=== PATIENT | male | born 1970 | race Two or more races ===

== ENCOUNTER 2023-07-16 13:38 | Emergency (ER) | payer OTHER ==
[~2023-07-16] VITALS: Ht 172.7 cm; Wt 62.6 kg
[2023-07-16 14:59] LABS: BASOPHILS # (AUTO) 0.1 K/uL (0.0-0.2); BASOPHILS % (AUTO) 1.3 % (0.0-2.0); CALCIUM, SERUM 9.1 mg/dL (8.5-10.1); CREATININE 2.6 mg/dL (0.6-1.3); EOSINOPHILS # (AUTO) 0.2 K/uL (0.0-0.7); EOSINOPHILS % (AUTO) 3.9 % (0.0-6.0); HEMATOCRIT 22 % (39-51); LYMPHOCYTES % (AUTO) 23.2 % (20.0-44.0); MEAN CORPUSCULAR HEMOGLOBIN 27 PG (26.0-33.0); MEAN CORPUSCULAR HGB CONC 32 g/dl (31.0-36.0); MEAN CORPUSCULAR VOLUME 85 fL (80-96); MONOCYTES # (AUTO) 0.5 K/uL (0.1-1.30); MONOCYTES % (AUTO) 11.7 % (2.0-12.0); NEUTROPHILS # (AUTO) 2.6 K/uL (1.8-8.9); NEUTROPHILS % (AUTO) 59.9 % (43.0-81.0); PLATELET COUNT (AUTO) 259 K/uL (150-450); POTASSIUM 3.3 mmol/L (3.5-5.1); RED BLOOD CELL COUNT(AUTO) 2.58 MIL/uL (4.5-6.0); RED CELL DISTRIBUTION WIDTH 17.1 % (11.5-15.0); WHITE BLOOD COUNT (AUTO) 4.4 K/uL (4.3-11.0)
[2023-07-16 15:05] LABS: ALBUMIN 3.4 g/dL (3.4-5.0); BILIRUBIN,DIRECT 0.2 mg/dL (0.0-0.2); TOTAL PROTEIN, SERUM 7.9 g/dL (6.4-8.2)
[2023-07-16 15:07] LABS: INR 1.06 (0.91-1.10); PROTHROMBIN TIME 11.1 SECS (9.2-11.1)
[2023-07-16 15:23] LABS: PARTIAL THROMBOPLASTIN TIME 86.4 SEC (24.3-34.3)
[2023-07-16] MEDS ORDERED: AMLO-213 PO (15:36)
[2023-07-16] MEDS ORDERED: AMYL1CAP56 PO (15:36)
[2023-07-16] MEDS ORDERED: ERGO500093 PO (15:36)
[2023-07-16] MEDS ORDERED: INSU100V7 SQ (15:36)
[2023-07-16] MEDS ORDERED: TAMS-12 PO (15:36)
[2023-07-16] MEDS ORDERED: GABA-532 PO (15:36)
[2023-07-16] MEDS ORDERED: ATOR40TA PO (15:36)
[2023-07-16] MEDS ORDERED: SEVE800T8 PO (15:36)
[2023-07-16] MEDS ORDERED: INSU100I14 SQ (15:36)
[2023-07-16] MEDS ORDERED: PANT40TA49 PO (15:36)
[2023-07-16 22:59] VITALS: BP 146/87; TEMP 97.7; O2SAT 98
== END 2023-07-16 23:00 | disposition short-term general hospital (02) ==
LOC: ER 13:59
DX: D64.9 Anemia, unspecified (principal); E11.22 Type 2 diabetes mellitus with diabetic chronic kidney disease; I12.0 Hypertensive chronic kidney disease with stage 5 chronic kidney disease or end stage renal disease; N18.6 End stage renal disease; Z99.2 Dependence on renal dialysis; Z60.2 Problems related to living alone; Z79.4 Long term (current) use of insulin; Z79.899 Other long term (current) drug therapy
CPT/HCPCS: 99285; 36430; 93005; 71045; 85025; 80048; 80076; 36415; 85730; 86850; 86923; J7040; P9016

== ENCOUNTER 2023-12-13 05:01 | Emergency (ER) | payer OTHER ==
[~2023-12-13] VITALS: Ht 157.5 cm; Wt 71.7 kg
[~2023-12-13 05:01] MED LIST: AMLO-213 PO; AMYL1CAP56 PO; ATOR40TA PO; ERGO500093 PO; GABA-532 PO; INSU100I14 SQ; INSU100V7 SQ; PANT40TA49 PO; SEVE800T8 PO; TAMS-12 PO
[2023-12-13 05:30] VITALS: BP 124/67; TEMP 98; O2SAT 98
== END 2023-12-13 06:05 ==
LOC: ER 05:03
DX: Z49.31 Encounter for adequacy testing for hemodialysis (principal); Z53.21 Procedure and treatment not carried out due to patient leaving prior to being seen by health care provider

== ENCOUNTER 2024-10-12 14:20 | Emergency (ER) | payer OTHER ==
[~2024-10-12] VITALS: Ht 170.2 cm; Wt 60.8 kg
[2024-10-12] MEDS: IV NS 0.9% 1,000 ML BAG IV ONE (14:35)
[2024-10-12 14:57] LABS: VBG BASE EXCESS -4.5 mmol/L (-2.0-3.0); VBG COHb 0.8 % (0.5-1.5); VBG MetHb 0.2 % (0.5-1.5); VBG O2Hb 87.4 % (0-79); VBG OXYGEN SATURATION 88.3 % (60.0-85.0); VBG PCO2 34.2 mmHg (38.0-54.0); VBG PH 7.384 (7.320-7.430); VBG PO2 57.9 mmHg (23.0-48.0)
[2024-10-12 15:37] LABS: BASOPHILS # (AUTO) 0.1 K/uL (0.0-0.2); BASOPHILS % (AUTO) 1.4 % (0.0-2.0); EOSINOPHILS # (AUTO) 0.2 K/uL (0.0-0.7); EOSINOPHILS % (AUTO) 4.4 % (0.0-6.0); HEMATOCRIT 27 % (39-51); HEMOGLOBIN 8.7 g/dL (13.5-17.5); LYMPHOCYTES # (AUTO) 1.3 K/uL (0.8-4.8); LYMPHOCYTES % (AUTO) 32.3 % (20.0-44.0); MEAN CORPUSCULAR HEMOGLOBIN 31 PG (26.0-33.0); MEAN CORPUSCULAR HGB CONC 33 g/dl (31.0-36.0); MEAN CORPUSCULAR VOLUME 95 fL (80-96); MONOCYTES # (AUTO) 0.3 K/uL (0.1-1.30); MONOCYTES % (AUTO) 8.5 % (2.0-12.0); NEUTROPHILS # (AUTO) 2.1 K/uL (1.8-8.9); NEUTROPHILS % (AUTO) 53.4 % (43.0-81.0); PLATELET COUNT (AUTO) 173 K/uL (150-450); RED BLOOD CELL COUNT(AUTO) 2.81 MIL/uL (4.5-6.0); RED CELL DISTRIBUTION WIDTH 13.7 % (11.5-15.0); WHITE BLOOD COUNT (AUTO) 3.9 K/uL (4.3-11.0)
[2024-10-12] MEDS: CEFEPIME 1 GM in IV D5W 50 ML IV ONE (15:39)
[2024-10-12 15:55] LABS: INR 1.04 (0.91-1.10); PARTIAL THROMBOPLASTIN TIME 29.2 SEC (24.3-34.3); PROTHROMBIN TIME 10.7 SECS (9.2-11.1)
[2024-10-12 15:56] LABS: ALANINE AMINOTRANSFERASE 166 U/L (12-78); ALBUMIN 3.2 g/dL (3.4-5.0); ALKALINE PHOSPHATASE 245 U/L (46-116); ASPARTATE AMINOTRANSFERASE 68 U/L (15-37); BILIRUBIN,DIRECT 0.1 mg/dL (0.0-0.2); BILIRUBIN,TOTAL 0.5 mg/dL (0.2-1.0); CALCIUM, SERUM 7.8 mg/dL (8.5-10.1); CARBON DIOXIDE 23 mmol/L (21-32); CHLORIDE 100 mmol/L (98-107); POTASSIUM 4.9 mmol/L (3.5-5.1); SODIUM SERUM 133 mmol/L (136-145); TOTAL PROTEIN, SERUM 6.3 g/dL (6.4-8.2); UREA NITROGEN, BLOOD 35 mg/dL (7-18)
[2024-10-12 16:00] LABS: MAGNESIUM 2.3 mg/dL (1.8-2.4); PHOSPHORUS 4.1 mg/dL (2.5-4.9)
[2024-10-12 16:04] LABS: GLUCOSE 475 mg/dL (74-106)
[2024-10-12 16:05] LABS: CREATININE 7.6 mg/dL (0.6-1.3)
[2024-10-12 16:06] LABS: LACTIC ACID 2.8 mmol/L (0.4-2.0)
[2024-10-12 16:25] LABS: ACETONE, SERUM NEGATIVE (NEGATIVE)
[2024-10-12] MEDS ORDERED: INSULIN REGULAR, HUMAN 100 UNIT/ML 10 ML VIAL ONE (16:57)
[2024-10-12] MEDS: INSULIN REGULAR, HUMAN 100 UNIT/ML 10 ML VIAL SQ ONE (17:10)
[2024-10-12 17:12] VITALS: BP 140/92; TEMP 98.2; O2SAT 100
== END 2024-10-12 17:13 | disposition left against medical advice (07) ==
LOC: ER 14:32
DX: N18.6 End stage renal disease (principal); E11.22 Type 2 diabetes mellitus with diabetic chronic kidney disease; I12.0 Hypertensive chronic kidney disease with stage 5 chronic kidney disease or end stage renal disease; E11.65 Type 2 diabetes mellitus with hyperglycemia; E11.40 Type 2 diabetes mellitus with diabetic neuropathy, unspecified; D64.9 Anemia, unspecified; E78.5 Hyperlipidemia, unspecified; E87.5 Hyperkalemia; K21.9 Gastro-esophageal reflux disease without esophagitis; N40.0 Benign prostatic hyperplasia without lower urinary tract symptoms; R65.10 Systemic inflammatory response syndrome (SIRS) of non-infectious origin without acute organ dysfunction; I95.9 Hypotension, unspecified; Z79.899 Other long term (current) drug therapy; Z99.2 Dependence on renal dialysis; Z60.2 Problems related to living alone
CPT/HCPCS: 99285; 96365; 96360; 71045; 93005; 82803 ×2; 84145; 85025; 80048; 87040; 82010; 83605; 80076; 83735; 84100; 36415; 84484; 85730; 82962; 96372; J1815; J7060; J7030; A4223; J0692